=== PATIENT | female | born 1975 | race Caucasian/White ===

== ENCOUNTER → 2017-04-17 | Outpatient (REF) | payer OTHER, MEDICAID ==
[2017-04-17 12:59] LABS: BASO # 0.1 10^3/uL (0.0-0.2); BASO % 0.9 % (0.0-1.0); EOS # 0.1 10^3/uL (0.0-0.50); EOS % 1.6 % (0.0-3.0); HEMATOCRIT 38.6 % (36.0-47.0); HEMOGLOBIN 12.4 g/dl (12.0-16.0); IMMATURE GRANULOCYTE % 0.2 % (0-3.0); LYMPH # 2.6 10^3/uL (1.5-4.5); LYMPH % 45.6 % (24.0-44.0); MEAN CORPUSCULAR HEMOGLOBIN 27.1 pg (27.0-33.0); MEAN CORPUSCULAR HGB CONC 32.1 g/dl (32.0-36.5); MEAN CORPUSCULAR VOLUME 84.3 fl (80.0-96.0); MONO # 0.3 10^3/uL (0.0-0.8); MONO % 5.9 % (0.0-5.0); NEUTROPHILS # 2.6 10^3/uL (1.8-7.7); NEUTROPHILS % 45.8 % (36.0-66.0); PLATELET COUNT, AUTOMATED 291 10^3/uL (150-450); RED BLOOD COUNT 4.58 10^6/uL (4.00-5.40); RED CELL DISTRIBUTION WIDTH 13.8 % (11.5-14.5); WHITE BLOOD COUNT 5.8 10^3/uL (4.0-10.0)
[2017-04-17 13:15] LABS: TOTAL 25(OH) VITAMIN D 29.8 NG/ML (30.0-100.0)
[2017-04-17 13:19] LABS: ALBUMIN 3.5 GM/DL (3.2-5.2); ALBUMIN/GLOBULIN RATIO 0.95 (1.00-1.93); ALKALINE PHOSPHATASE 41 U/L (45-117); ALT/SGPT 14 U/L (12-78); ANION GAP 7 MEQ/L (8-16); AST/SGOT 11 U/L (7-37); BILIRUBIN,TOTAL 0.4 MG/DL (0.2-1.0); BLOOD UREA NITROGEN 14 MG/DL (7-18); CALCIUM LEVEL 8.2 MG/DL (8.5-10.1); CARBON DIOXIDE LEVEL 27 MEQ/L (21-32); CHLORIDE LEVEL 105 MEQ/L (98-107); CHOLESTEROL LEVEL 194 MG/DL (<200); CHOLESTEROL RISK RATIO 1.732 (<5); CREATININE FOR GFR 0.81 MG/DL (0.55-1.30); GLOMERULAR FILTRATION RATE > 60.0 (>58); GLUCOSE, FASTING 78 MG/DL (70-100); HDL CHOLESTEROL 112 MG/DL (>40); LDL CHOLESTEROL 71.2 MG/DL (<100); NON-HDL-C 82 MG/DL; POTASSIUM SERUM 4.3 MEQ/L (3.5-5.1); SODIUM LEVEL 139 MEQ/L (136-145); TOTAL PROTEIN 7.2 GM/DL (6.4-8.2); TRIGLYCERIDES LEVEL 54 MG/DL (<150)
[2017-04-17 13:55] LABS: HEPATITIS C VIRUS ABY INDEX 0.1 INDEX (<0.8); HIV 1&2 SCREEN CENTAUR NEGATIVE (NEGATIVE)
[2017-04-17 14:42] LABS: CHLAMYDIA DNA AMPLIFICATION NEGATIVE (NEGATIVE); GC DNA AMPLIFICATION NEGATIVE (NEGATIVE)
[2017-04-17 15:11] LABS: ESTIMATED AVERAGE GLUCOSE 103 MG/DL (60-110); HEMOGLOBIN A1c 5.2 %
== END ==
LOC: M LAB REF 12:18
DX: Z13.9 Encounter for screening, unspecified (principal)

== ENCOUNTER → 2017-08-13 | Outpatient (REF) | payer OTHER, MEDICAID ==
[2017-08-13 19:24] LABS: VITAMIN B12 LEVEL 936 PG/ML (247-911)
[2017-08-13 19:25] LABS: FOLATE 14.7 NG/ML (>5.4)
[2017-08-18 14:30] LABS: VITAMIN B1 LEVEL WHOLE BLOOD 111.5 nmol/L (66.5-200.0)
== END ==
LOC: M LAB REF 18:33
DX: R41.3 Other amnesia (principal)
CPT/HCPCS: 82746

== ENCOUNTER → 2018-05-13 | Outpatient (REF) | payer OTHER ==
[2018-05-15 16:40] LABS: HPV HYBRID CAPTURE II Negative (Negative)
== END ==
LOC: M SFHCWAGY 10:22
PROVIDERS: ATTEND Nurse Practitioner Women's Health
DX: Z12.4 Encounter for screening for malignant neoplasm of cervix (principal)

== ENCOUNTER → 2018-05-20 | Outpatient (CLI) | payer OTHER ==
--- NOTE | 2018-05-20 09:53 | REPMRS ---
Patient History The patient states she had a clinical breast exam in 04/2018. Patient had first child at age 33. No known family history of cancer. Taking hormonal contraceptives for 1 month. 3D TOMOSYNTHESIS WAS PERFORMED. Digital Woman Screen Mammo: May 20, 2018 - Exam #: [id number] Bilateral CC and MLO view(s) were taken. Technologist: Cleo Lozano, Technologist Prior study comparison: December 25, 2015, digital woman screen mammo performed at [facility]. FINDINGS: The breast tissue is heterogeneously dense. This may lower the sensitivity of mammography. There has been no change in the appearance of the mammogram from the prior studies. There is a moderate amount of residual fibroglandular tissue which is fairly symmetric. There is no interval development of dominant mass, areas of architectural distortion, or clustered microcalcification typical of malignancy. Assessment: BI-RADS/ACR category 1 mammogram. Negative Mammogram. Recommendation Routine screening mammogram in 1 year (for women over age 40). This mammogram was interpreted with the aid of an FDA-approved computer-aided dectection system. Electronically Signed By: Samuel Ugalde MD 05/20/18 0953
== END ==
LOC: M WHC 08:25
PROVIDERS: ATTEND Nurse Practitioner Women's Health
DX: Z12.31 Encounter for screening mammogram for malignant neoplasm of breast (principal)

== ENCOUNTER 2018-10-16 20:09 | Emergency (ER) | payer OTHER ==
[~2018-10-16] VITALS: Ht 160 cm; Wt 61.4 kg
[2018-10-16] MEDS ORDERED: TETANUS/DIPHTHERIA TOX ADSORB ADULT 0.5ML SYR/VIAL (90714) IM ONE (21:00)
--- NOTE | 2018-10-16 21:36 | REPVR ---
EXAM: CT Head Without Contrast EXAM DATE/TIME: 10/16/2018 9:02 PM CLINICAL HISTORY: 42 years old, female; Injury or trauma; Fall; Initial encounter; Concussion / head injury; Consciousness not specified; Additional info: Tr TECHNIQUE: Imaging protocol: Computed tomography of the head without contrast. Radiation optimization: All CT scans at this facility use at least one of these dose optimization techniques: automated exposure control; mA and/or kV adjustment per patient size (includes targeted exams where dose is matched to clinical indication); or iterative reconstruction. COMPARISON: CT Head without contrast 03/11/2015 1:26 AM FINDINGS: Brain: No acute intracranial hemorrhage or mass effect. No discrete geographic area of hypoattenuation to suggest territorial infarct identified at this time. Ventricles: No ventriculomegaly. Bones/joints: No acute fracture. Sinuses: No fluid levels. Mastoid air cells: Visualized mastoid air cells are well aerated. Soft tissues: Left frontotemporal scalp soft tissue avulsion with a few foci of subcutaneous emphysema. IMPRESSION: No acute intracranial abnormality. Left frontotemporal scalp soft tissue avulsion with a few foci of subcutaneous emphysema. Electronically signed by: Tin Davidson On 10/16/2018 21:35:54 PM
[2018-10-16] MEDS ORDERED: NORCO, ANEXSIA 5/325MG TABLET (HYDROcodone/ACETAMINOPHEN) PO ONE (21:45)
[2018-10-16] MEDS ORDERED: LIDOCAINE W/EPINEPHRINE 1% 20ML VIAL SC ONE (22:00)
[2018-10-16 23:01] VITALS: BP 150/88
== END 2018-10-16 23:29 | disposition home or self-care (01) ==
LOC: M ED 20:09
DX: S01.81XA Laceration without foreign body of other part of head, initial encounter (principal); V18.0XXA Pedal cycle driver injured in noncollision transport accident in nontraffic accident, initial encounter; Y92.89 Other specified places as the place of occurrence of the external cause

== ENCOUNTER 2018-11-22 08:19 | Observation (INO) | payer OTHER ==
[~2018-11-22] VITALS: Ht 160 cm; Wt 59.5 kg
[2018-11-22] MEDS ORDERED: BUPR150T5 PO (08:26)
[2018-11-22 09:39] LABS: BASO # 0.1 10^3/uL (0.0-0.2); BASO % 0.7 % (0.0-1.0); EOS # 0.1 10^3/uL (0.0-0.5); EOS % 1.1 % (0.0-3.0); HEMATOCRIT 32.1 % (36.0-47.0); HEMOGLOBIN 9.9 g/dl (12.0-15.5); LYMPH # 1.8 10^3/uL (1.5-5.0); LYMPH % 24.1 % (24.0-44.0); MEAN CORPUSCULAR HEMOGLOBIN 23.9 pg (27.0-33.0); MEAN CORPUSCULAR HGB CONC 30.8 g/dl (32.0-36.5); MEAN CORPUSCULAR VOLUME 77.3 fl (80.0-96.0); MONO # 0.4 10^3/uL (0.0-0.8); MONO % 5.9 % (0.0-5.0); NEUTROPHILS # 4.9 10^3/uL (1.5-8.5); NEUTROPHILS % 67.9 % (36.0-66.0); PLATELET COUNT, AUTOMATED 323 10^3/uL (150-450); RED BLOOD COUNT 4.15 10^6/uL (4.00-5.40); WHITE BLOOD COUNT 7.3 10^3/uL (4.0-10.0)
--- NOTE | 2018-11-22 09:56 | REP ---
CHEST: Single view. There is no evidence of acute infiltrate. No pleural effusion is seen. The heart is normal in size. The mediastinal silhouette is unremarkable. The visualized osseous structures are intact. IMPRESSION: No acute pulmonary disease. Electronically Signed by Samuel Ugalde MD 11/22/2018 11:26 P
[2018-11-22 10:06] LABS: HCG, SERUM QUALITATIVE NEGATIVE (NEGATIVE)
[2018-11-22 10:13] LABS: ERYTHROCYTE SEDIMENTATION RATE 10 mm/hr (0-20)
[2018-11-22 10:20] LABS: ALBUMIN 3.5 GM/DL (3.2-5.2); ALT/SGPT 60 U/L (12-78); BILIRUBIN,DIRECT 0.2 MG/DL (0.0-0.2); BILIRUBIN,TOTAL 0.5 MG/DL (0.2-1.0); BLOOD UREA NITROGEN 19 MG/DL (7-18); CALCIUM LEVEL 8.7 MG/DL (8.5-10.1); CARBON DIOXIDE LEVEL 24 MEQ/L (21-32); CHLORIDE LEVEL 107 MEQ/L (98-107); CK-MB VALUE MASS 2.7 NG/ML (<3.6); CPK CREATINE PHOSPHOKINASE 6266 U/L (26-192); CREATININE FOR GFR 0.93 MG/DL (0.55-1.30); GLOMERULAR FILTRATION RATE > 60.0 (>58); GLUCOSE, FASTING 81 MG/DL (70-100); LIPASE 233 U/L (73-393); MB/CK RELATIVE INDEX 0.04 (< OR =4); NT-PRO BNP 57 PG/ML (<125); POTASSIUM SERUM 4.2 MEQ/L (3.5-5.1); SODIUM LEVEL 138 MEQ/L (136-145); TOTAL PROTEIN 7.1 GM/DL (6.4-8.2); TROPONIN I < 0.02 NG/ML (< 0.10)
[2018-11-22] MEDS ORDERED: KETOROLAC 30 MG/ML VIAL (J1885) IV ONE (11:00)
[2018-11-22] MEDS: NS 1,000 ML IV SCH ×5 (11:02→22:57)
--- NOTE | 2018-11-22 11:55 | HPEPDOC ---
General Date of Admission 11/22/18 Date of Service: Nov 22, 2018 Other Providers SHYANNE STODDARD Chief Complaint The patient is a 43-year-old female admitted with a reason for visit of Chest Pain. Source: Patient Exam Limitations: No limitations Timing/Duration: Day(s) (1. Today) Severity: Moderate Associated Symptoms: Chest Pain History of Present Illness 43 years old white female with past medical history of depression. She is on bupropion since last 3 months complained of left-sided chest pain which is present under the left breast, nonradiating on and off exacerbated with exercise relieved with the analgesics since last 1 day. Patient has no other associated symptoms with chest pain. Patient has been working out strenuously and also has been taking hovp-fmf-ycnsiqa OXY LEAN weight loss supplement which contains caffeine, bauhinia,Bacopa, theophylline, niacin isopropyl norSynephrine, magnesium, selenium and other ingredients. Home Medications Scheduled Bupropion Hcl (Bupropion HCl Sr) 150 Mg Tab.sr.12h, 150 MG PO BID, (Reported) Allergies Coded Allergies: No Known Allergies (Unverified , 10/16/18) Past Medical History Medical History Depression Surgical History None Family History Significant Family History: No pertinent family hx Social History * Smoker: former Smoker, quit greater than 1 year Alcohol: Denies Drugs: denies A-FIB/CHADSVASC A-FIB History Current/History of A-Fib/PAF?: No Review of Systems Constitutional: Denies: Chills, Fever, Malaise, Night Sweats, Weakness, Fatigue, Weight Loss, Lethargy, Other Eyes: Denies: Pain, Vision change, Conjunctivae inflammation, Eyelid inflammation, Redness, Other ENT: Denies: Head Aches, Ear Pain, Dysphagia, Sinus Congestion, Post Nasal Drip, Sore Throat, Epistaxis, Other Symptoms Skin: Denies: Rash, Lesions, Jaundice, Bruising, Itching, Dry, Breakdown, Nail Changes, Other Pulmonary: Denies: Dyspnea, Cough, Pleuritic Chest Pain, Other Symptoms Cardiovascular: Reports: Chest Pain Gastrointestinal: Denies: Nausea, Vomiting, Abdominal Pain, Diarrhea, Constipation, Melena, Hematochezia, Other Symptoms Genitourinary: Denies: Dysuria, Frequency, Incontinence, Hematuria, Retention, Other Symptoms Endocrine: Denies: Polydipsia, Polyphagia, Polyuria, Heat Intolerance, Cold Intolerance, Other Endocrine Sx Musculoskeletal: Denies: Neck Pain, Back Pain, Shoulder Pain, Arm Pain, Hand Pain, Leg Pain, Foot Pain, Joint Pain, Muscle Pain, Spasms, Other Symptoms Neurological: Denies: Weakness, Numbness, Incoordination, Change in speech, Confusion, Seizures, Other Symptoms Psych: Denies: Mood Normal, Anxiety, Depression, Memory Issues, Thoughts of Self Harm, Anger, Thoughts of Harming Other, Other Psych Physical Examination General Exam: Positive: Alert, Cooperative Eye Exam: Positive: PERRLA, Conjunctiva & lids normal ENT Exam: Positive: Atraumatic, Mucous membr. moist/pink Neck Exam: Positive: Supple Chest Exam: Positive: Clear to auscultation, Normal air movement Heart Exam: Positive: Rate Normal, Normal S1, Normal S2, Other (. Positive tenderness at the fifth intercostal space on left side medially) Abdomen Exam: Positive: Normal bowel sounds, Soft Extremity Exam: Positive: Normal pulses Skin Exam: Positive: Nl turgor and temperature Neuro Exam: Positive: Strength at 5/5 X4 ext, Sensation Intact Psych Exam: Positive: Mental status NL, Mood NL, Oriented x 3 Vital Signs Vital Signs Date Time Temp Pulse Resp B/P (MAP) Pulse Ox O2 Delivery O2 Flow Rate FiO2 11/22/18 10:00 64 151/100 (117) 11/22/18 09:45 18 98 Room Air 11/22/18 08:20 98.5 Laboratory Data Labs 24H Laboratory Tests 2 11/22/18 09:13: D-Dimer, Quantitative 302.33 11/22/18 09:25: Immature Granulocyte % (Auto) 0.3, White Blood Count 7.3, Red Blood Count 4.15, Hemoglobin 9.9L, Hematocrit 32.1L, Mean Corpuscular Volume 77.3L, Mean Corpuscular Hemoglobin 23.9L, Mean Corpuscular Hemoglobin Concent 30.8L, Red Cell Distribution Width 17.0H, Platelet Count 323, Neutrophils (%) (Auto) 67.9H, Lymphocytes (%) (Auto) 24.1, Monocytes (%) (Auto) 5.9H, Eosinophils (%) (Auto) 1.1, Basophils (%) (Auto) 0.7, Neutrophils # (Auto) 4.9, Lymphocytes # (Auto) 1.8, Monocytes # (Auto) 0.4, Eosinophils # (Auto) 0.1, Basophils # (Auto) 0.1, Nucleated Red Blood Cells % (auto) 0.0, Erythrocyte Sedimentation Rate 10, Anion Gap 7L, Glomerular Filtration Rate > 60.0, Calcium Level 8.7, Aspartate Amino Transf (AST/SGOT) 90H, Alanine Aminotransferase (ALT/SGPT) 60, Alkaline Phosphatase 54, Total Bilirubin 0.5, Direct Bilirubin 0.2, Total Creatine Kinase 6266H, Creatine Kinase MB 2.7, Creatine Kinase MB Relative Index 0.04, Troponin I < 0.02, HB-Bmk-M-Type Natriuretic Peptide 57, Total Protein 7.1, Albumin 3.5, Albumin/Globulin Ratio 0.97L, Lipase 233, Thyroid Stimulating Hormone (TSH) 2.770, Human Chorionic Gonadotropin, Qual NEGATIVE CBC/BMP Laboratory Tests 11/22/18 09:25 Red Blood Count 4.15, Mean Corpuscular Volume 77.3 L, Mean Corpuscular Hemoglobin 23.9 L, Mean Corpuscular Hemoglobin Concent 30.8 L, Red Cell Distribution Width 17.0 H, Neutrophils (%) (Auto) 67.9 H, Lymphocytes (%) (Auto) 24.1, Monocytes (%) (Auto) 5.9 H, Eosinophils (%) (Auto) 1.1, Basophils (%) (Auto) 0.7, Neutrophils # (Auto) 4.9, Lymphocytes # (Auto) 1.8, Monocytes # (Auto) 0.4, Eosinophils # (Auto) 0.1, Basophils # (Auto) 0.1 Problems (1) Rhabdomyolysis Status: Acute Problem Text: Rhabdomyolysis, most likely secondary to exercise and over the counter weight loss medication medication. Doubt that it is caused by bupiripion. Admit patient under observation IV fluids normal saline 150 mL per hour Left rib x-ray to rule out rib fracture Patient has been is advised not to take rqux-jva-ilnshwa weight loss medications Encouraged to have enough hydration of the exercise Patient possibly can be discharged back on her bupropion once a CPK level is WNL CBC, CMP and CK in a.m. Pt is physically very active and DVT prophylaxis is not indicated Regular diet Plan / VTE VTE Prophylaxis Ordered?: No VTE Exclusion Mechanical Proph: Low Risk for VTE VTE Exclusion Pharmacological: At Low Risk for VTE ALINE DAS MD Nov 22, 2018 11:55
--- NOTE | 2018-11-22 12:31 | REP ---
Left ribs for views: There is no rib fracture or other rib abnormality. Electronically Signed by Samuel Beard MD 11/22/2018 12:23 P
[2018-11-22 12:45] VITALS: BP 143/68
[2018-11-22 14:00] VITALS: BP 137/91
[2018-11-22] MEDS: ACETAMINOPHEN TAB 650MG DOSE (2X325MG) PO PRN (15:51)
[2018-11-22 22:00] VITALS: BP 142/89
--- NOTE | 2018-11-23 00:37 | ECGEPIP ---
[facility] - ED Test Date: 2018-11-22 Pat Name: SAMIR BHAKTA Department: Room: - Gender: Female [employer]: PMO : 1975 Requested By: Mary Rizzo Order Number: [id number] Reading MD: Jay Olson Measurements Intervals [place] Rate: 73 P: 67 W[place]: 146 QRS: 91 QRSD: 95 T: 30 QT: 407 QTc: 450 Interpretive Statements SINUS RHYTHM BORDERLINE RIGHT AXIS DEVIATION Comparison tracing not on file Electronically Signed on 11-23-2018 0:37:38 EDT by Jay Olson
[2018-11-23] MEDS: NS 1,000 ML IV SCH ×3 (05:17→18:07)
[2018-11-23 06:00] VITALS: BP 138/85
[2018-11-23 06:07] LABS: HEMATOCRIT 30.5 % (36.0-47.0); MEAN CORPUSCULAR HEMOGLOBIN 23.6 pg (27.0-33.0); MEAN CORPUSCULAR HGB CONC 29.5 g/dl (32.0-36.5); MEAN CORPUSCULAR VOLUME 79.8 fl (80.0-96.0); PLATELET COUNT, AUTOMATED 301 10^3/uL (150-450); RED BLOOD COUNT 3.82 10^6/uL (4.00-5.40); WHITE BLOOD COUNT 6.4 10^3/uL (4.0-10.0)
[2018-11-23 06:47] LABS: ALBUMIN 2.7 GM/DL (3.2-5.2); ALT/SGPT 42 U/L (12-78); BILIRUBIN,TOTAL 0.2 MG/DL (0.2-1.0); BLOOD UREA NITROGEN 11 MG/DL (7-18); CALCIUM LEVEL 7.6 MG/DL (8.5-10.1); CARBON DIOXIDE LEVEL 25 MEQ/L (21-32); CHLORIDE LEVEL 112 MEQ/L (98-107); CPK CREATINE PHOSPHOKINASE 2612 U/L (26-192); GLOMERULAR FILTRATION RATE > 60.0 (>58); GLUCOSE, FASTING 91 MG/DL (70-100); POTASSIUM SERUM 4.2 MEQ/L (3.5-5.1); SODIUM LEVEL 142 MEQ/L (136-145); TOTAL PROTEIN 5.5 GM/DL (6.4-8.2)
[2018-11-23] MEDS: ACETAMINOPHEN TAB 650MG DOSE (2X325MG) PO PRN ×2 (08:29→20:23)
[2018-11-23 14:00] VITALS: BP 143/90
--- NOTE | 2018-11-23 19:43 | IPNPDOC ---
Date Seen The patient was seen on 11/23/18. Progress Note SUBJECTIVE: 43-year-old female with past medical history of depression, was admitted for rhabdomyolysis. She reports excessive exercising and taking a thermogenic uygo-xnh-qbfodys supplement. She reports improvement in chest pain but continues to have pleuritic and reproducible point tenderness. She reports feeling significantly better and wishes to go home. She has no other complaints at this time, tolerating diet, ambulating; she denies having shortness of breath, abdominal pain, nausea, vomiting, diarrhea, constipation. 10 point review of system was negative except for above OBJECTIVE PHYSICAL EXAMINATION: VITAL SIGNS: Please see below. GENERAL: No distress HEENT: Normocephalic, atraumatic, moist mucous membranes CARDIOVASCULAR: S1, S2. RESPIRATORY: Clear to auscultation. ABDOMINAL: Soft, nontender, nondistended, positive bowel sounds EXTREMITIES: Range of motion intact NEUROLOGICAL: Alert and oriented 3, no focal deficits PSYCHOLOGICAL: Calm LABORATORY DATA, IMAGING STUDIES, MICROBIOLOGY: Please see below. DVT prophylaxis ordered?: No ASSESSMENT AND PLAN: 43-year-old female admitted for rhabdomyolysis due to excessive exercising and taking auco-rmv-sijgkhn thermogenic supplementation. PROBLEMS: 1. Rhabdomyolysis: . Improving. Continue normal saline at 150 mL per hour 2. Anemia: . Reports having menstruation. Likely iron deficiency, anemia workup ordered. DVT prophylaxis: SCDs and ambulation. GI prophylaxis: Not needed at this time VS, I&O, 24H, Fishbone Vital Signs/I&O Vital Signs Date Time Temp Pulse Resp B/P (MAP) Pulse Ox O2 Delivery O2 Flow Rate FiO2 11/23/18 14:00 98.0 66 18 143/90 (107) 99 11/22/18 12:20 Room Air I&O- Last 24 Hours up to 6 AM 11/23/18 05:59 Intake Total 3340 ml Balance 3340 ml Laboratory Data 24H LABS Laboratory Tests 2 11/23/18 05:27: Nucleated Red Blood Cells % (auto) 0.0, Anion Gap 5L, Glomerular Filtration Rate > 60.0, Blood Urea Nitrogen 11, Creatinine 0.80, Sodium Level 142, Potassium Level 4.2, Chloride Level 112H, Carbon Dioxide Level 25, Calcium Level 7.6L, Aspartate Amino Transf (AST/SGOT) 47H, Alanine Aminotransferase (ALT/SGPT) 42, T otal Creatine Kinase 2612H, Alkaline Phosphatase 46, Total Bilirubin 0.2#, Total Protein 5.5#L, Albumin 2.7#L, Albumin/Globulin Ratio 0.96L CBC/BMP Laboratory Tests 11/23/18 05:27 Red Blood Count 3.82 L, Mean Corpuscular Volume 79.8 L, Mean Corpuscular Hemoglobin 23.6 L, Mean Corpuscular Hemoglobin Concent 29.5 L, Red Cell Distribution Width 17.2 H, Calcium Level 7.6 L, Aspartate Amino Transf (AST/SGOT) 47 H, Alanine Aminotransferase (ALT/SGPT) 42, Total Creatine Kinase 2612 H, Alkaline Phosphatase 46, Total Bilirubin 0.2 #, Total Protein 5.5 #L, Albumin 2.7 #L ROSE MARY SUAREZ MD Nov 23, 2018 19:43
[2018-11-23 22:00] VITALS: BP 134/94
[2018-11-24] MEDS: NS 1,000 ML IV SCH ×2 (00:23→05:05)
[2018-11-24 06:00] VITALS: BP 131/84
[2018-11-24 06:02] LABS: HEMATOCRIT 30.4 % (36.0-47.0); MEAN CORPUSCULAR HEMOGLOBIN 23.6 pg (27.0-33.0); MEAN CORPUSCULAR HGB CONC 29.6 g/dl (32.0-36.5); MEAN CORPUSCULAR VOLUME 79.6 fl (80.0-96.0); PLATELET COUNT, AUTOMATED 308 10^3/uL (150-450); RED BLOOD COUNT 3.82 10^6/uL (4.00-5.40); WHITE BLOOD COUNT 8.5 10^3/uL (4.0-10.0)
[2018-11-24 08:55] LABS: ALBUMIN 2.5 GM/DL (3.2-5.2); ALT/SGPT 40 U/L (12-78); BILIRUBIN,TOTAL 0.2 MG/DL (0.2-1.0); BLOOD UREA NITROGEN 10 MG/DL (7-18); CALCIUM LEVEL 7.5 MG/DL (8.5-10.1); CARBON DIOXIDE LEVEL 25 MEQ/L (21-32); CHLORIDE LEVEL 112 MEQ/L (98-107); CPK CREATINE PHOSPHOKINASE 1310 U/L (26-192); CREATININE FOR GFR 0.78 MG/DL (0.55-1.30); FERRITIN 3 NG/ML (8-252); FOLATE 7.8 NG/ML (>5.4); GLOMERULAR FILTRATION RATE > 60.0 (>58); GLUCOSE, FASTING 80 MG/DL (70-100); IRON (FE) 9 UG/DL (50-170); MAGNESIUM LEVEL 1.5 MG/DL (1.8-2.4); POTASSIUM SERUM 4.5 MEQ/L (3.5-5.1); SODIUM LEVEL 143 MEQ/L (136-145); TOTAL IRON BINDING CAPACITY 298 UG/DL (250-450); TOTAL PROTEIN 4.9 GM/DL (6.4-8.2); VITAMIN B12 LEVEL 448 PG/ML (247-911)
[2018-11-24] MEDS ORDERED: INFLUENZA QUADRIVALENT PF VACCINE 0.5ML SYRINGE (90686) IM ONE (09:00)
[2018-11-24] MEDS ORDERED: IRON SUCROSE 100MG 5ML VIAL (J1756 PER 1MG) IV ONE (09:15)
[2018-11-24] MEDS ORDERED: NS 1,000 ML IV ONE (09:30)
[2018-11-24] MEDS: MAG SULF 1GM/100ML (MAG RUN) 1 GM in IV 1 EA IV SCH ×2 (09:32→10:49)
[2018-11-24] MEDS ORDERED: MAG SULF 1GM/100ML (MAG RUN) 1 GM in IV 1 EA IV ONE (10:15)
[2018-11-24] MEDS ORDERED: FERR325T3 PO (11:03)
[2018-11-24] MEDS ORDERED: COLA100C5 PO (11:03)
--- NOTE | 2018-11-24 11:09 | DS.PDOC ---
Discharge Summary General Date of Admission Nov 22, 2018 at 08:20 Date of Discharge 11/24/2018 Attending Physician: ROSE MARY SUAREZ MD Discharge Summary PROCEDURES PERFORMED DURING STAY: None. ADMITTING DIAGNOSES: 1. Rhabdomyolysis. DISCHARGE DIAGNOSES: 1. Rhabdomyolysis, iron deficiency anemia. COMPLICATIONS/CHIEF COMPLAINT: Rhabdomyolysis. HISTORY OF PRESENT ILLNESS: 43-year-old female with past medical history of depression, was admitted for rhabdomyolysis due to excessive exercise and taking thermogenic ubos-kij-vffcejc supplements. She has improved significantly with IV fluids, CPK significantly dropped, pleuritic chest pain minimal. Patient was anemic upon presentation, anemia, workup consistent with significant iron deficiency, will give 1 dose of IV iron prior to discharge, will discharge on by mouth supplementation and Colace. Patient is doing well today, has no complaints at this time. HOSPITAL COURSE: As above. DISCHARGE MEDICATIONS: Please see below. ALLERGIES: Please see below. PHYSICAL EXAMINATION ON DISCHARGE: VITAL SIGNS: Please see below. GENERAL: no distress HEENT: Normocephalic, atraumatic, moist pedis membranes NECK: Supple CARDIOVASCULAR EXAMINATION:. S1, S2, no murmurs appreciated RESPIRATORY EXAMINATION: Clear to auscultation, no wheezing or rhonchi ABDOMINAL EXAMINATION:. Soft, nontender, nondistended, positive bowel sounds EXTREMITIES:, Range of motion intact SKIN:. No rash NEUROLOGICAL EXAMINATION: Alert and oriented 3, no focal deficits PSYCHIATRIC EXAMINATION: Calm LABORATORY DATA: Please see below. PROGNOSIS: Good ACTIVITY: As tolerated. DIET: Regular DISCHARGE PLAN: She will follow up with her primary care physician within 2 weeks. DISPOSITION: . DISCHARGE INSTRUCTIONS: 1. Please follow with PCP and take iron supplementation. DISCHARGE CONDITION: Stable. TIME SPENT ON DISCHARGE: Greater than 27 minutes. Vital Signs/I&Os Vital Signs Date Time Temp Pulse Resp B/P (MAP) Pulse Ox O2 Delivery O2 Flow Rate FiO2 11/24/18 06:00 99.2 65 20 131/84 (100) 90 11/22/18 12:20 Room Air I&O- Last 24 Hours up to 6 AM 11/24/18 06:00 Intake Total 3246 ml Output Total 0 ml Balance 3246 ml Laboratory Data Labs 24H Laboratory Tests 2 11/24/18 05:31: Nucleated Red Blood Cells % (auto) 0.0, Anion Gap 6L, Glomerular Filtration Rate > 60.0, Blood Urea Nitrogen 10, Creatinine 0.78, Sodium Level 143, Potassium Level 4.5, Chloride Level 112H, Carbon Dioxide Level 25, Calcium Level 7.5L, Aspartate Amino Transf (AST/SGOT) 26, Alanine Aminotransferase (ALT/SGPT) 40, Total Creatine Kinase 1310H, Alkaline Phosphatase 45, Total Bilirubin 0.2, Total Protein 4.9L, Albumin 2.5L, Magnesium Level 1.5L, Iron Level 9L, Total Iron Binding Capacity 298, Transferrin % Saturation 3.0L, Ferritin 3L, Albumin/Globulin Ratio 1.04, Vitamin B12 Level 448, Folate 7.8 CBC/BMP Laboratory Tests 11/24/18 05:31 Red Blood Count 3.82 L, Mean Corpuscular Volume 79.6 L, Mean Corpuscular Hemoglobin 23.6 L, Mean Corpuscular Hemoglobin Concent 29.6 L, Red Cell Dis tribution Width 17.1 H, Calcium Level 7.5 L, Aspartate Amino Transf (AST/SGOT) 26, Alanine Aminotransferase (ALT/SGPT) 40, Total Creatine Kinase 1310 H, Alkaline Phosphatase 45, Total Bilirubin 0.2, Total Protein 4.9 L, Albumin 2.5 L Discharge Medications Scheduled Bupropion Hcl (Bupropion HCl Sr) 150 Mg Tab.sr.12h, 150 MG PO BID, (Reported) Docusate Sodium (Colace) 100 Mg Capsule, 100 MG PO BID Ferrous Sulfate (Ferrous Sulfate) 325 Mg Tablet.dr, 1 TAB PO BID Allergies Coded Allergies: No Known Allergies (Unverified , 10/16/18) ROSE MARY SUAREZ MD Nov 24, 2018 11:09
[2018-11-24] MEDS ORDERED: IRON SUCROSE 100 MG in NS 100 ML OVER 1 HR IV ONE (12:00)
[2018-11-24] MEDS: ACETAMINOPHEN TAB 650MG DOSE (2X325MG) PO PRN (12:38)
[2018-11-24 12:39] VITALS: BP 130/75
[2018-11-24 14:00] VITALS: BP 150/102
[2018-11-24] MEDS ORDERED: ONDANSETRON 4MG/2ML VIAL (J2405) IV ONE (14:00)
== END 2018-11-24 16:24 | disposition home or self-care (01) ==
LOC: M ED 08:19 → M ED INP 08:20 → M MSPAV 12:45
PROVIDERS: ADMIT Internal Medicine; ATTEND Internal Medicine
DX: M62.82 Rhabdomyolysis (principal); D50.9 Iron deficiency anemia, unspecified; R07.1 Chest pain on breathing; F32.9 Major depressive disorder, single episode, unspecified; Z79.899 Other long term (current) drug therapy; Z87.891 Personal history of nicotine dependence
CPT/HCPCS: 36415; 71045; 71100; 80048; 80053; 80076; 82550; 82553; 82607; 82728; 82746; 83550; 83690; 83735; 83874; 83880; 84443; 84703; 85025; 85027; 85379; 85652; 90471; 90686; 93005; 93041; 94760; 96361; 96374; 96375; 99285; J1756; J1885; J2405; J3475

== ENCOUNTER → 2019-08-18 | Outpatient (CLI) | payer OTHER ==
[~2019-08-18] MED LIST: BUPR150T5 PO; COLA100C5 PO; FERR325T3 PO
--- NOTE | 2019-08-18 11:03 | REPMRS ---
Patient History The patient states she had a clinical breast exam in August 2019.No known family history of cancer. Taking hormonal contraceptives for 1 month. Digital Woman Screen Mammo: August 18, 2019 - Exam #: [id number] Bilateral CC and MLO view(s) were taken. Technologist: Kerry Arana, Technologist Prior study comparison: May 20, 2018, bilateral digital woman screen mammo performed at [facility]. December 25, 2015, digital woman screen mammo performed at [facility]. FINDINGS: There are scattered fibroglandular densities. The Volpara volumetric breast density category is:B. There has been no change in the appearance of the mammogram from the prior studies. There is a mild amount of scattered fibroglandular density which is fairly symmetric. There is no interval development of dominant mass, architectural distortion, or grouped microcalcification suggestive of malignancy. 3-D tomosynthesis shows no additional findings. Assessment: BI-RADS/ACR category 1 mammogram. Negative Mammogram. Recommendation Routine screening mammogram of both breasts in 1 year (for women over age 40). This patient's Lifetime Breast Cancer Risk is estimated at 13.7 %. This mammogram was interpreted with the aid of an FDA-approved computer-aided dectection system. Electronically Signed By: Jose Joyce MD 08/18/19 [id number]
== END ==
LOC: M WHC 09:59
PROVIDERS: ATTEND Nurse Practitioner Women's Health
DX: Z12.31 Encounter for screening mammogram for malignant neoplasm of breast (principal)

== ENCOUNTER → 2020-01-19 | Outpatient (REF) | payer OTHER ==
[2020-01-19 17:12] LABS: BASO # 0.1 10^3/uL (0.0-0.2); BASO % 0.7 % (0.0-1.0); EOS # 0.1 10^3/uL (0.0-0.5); EOS % 1.7 % (0.0-3.0); HEMATOCRIT 40.4 % (36.0-47.0); HEMOGLOBIN 13.2 g/dl (12.0-15.5); LYMPH # 2.9 10^3/uL (1.5-5.0); LYMPH % 34.4 % (24.0-44.0); MEAN CORPUSCULAR HEMOGLOBIN 30.9 pg (27.0-33.0); MEAN CORPUSCULAR HGB CONC 32.7 g/dl (32.0-36.5); MEAN CORPUSCULAR VOLUME 94.6 fl (80.0-96.0); MONO # 0.5 10^3/uL (0.0-0.8); NEUTROPHILS # 4.8 10^3/uL (1.5-8.5); PLATELET COUNT, AUTOMATED 296 10^3/uL (150-450); RED BLOOD COUNT 4.27 10^6/uL (4.00-5.40); WHITE BLOOD COUNT 8.4 10^3/uL (4.0-10.0)
[2020-01-19 20:20] LABS: ALBUMIN 3.5 GM/DL (3.2-5.2); ALT/SGPT 16 U/L (12-78); BILIRUBIN,TOTAL 0.3 MG/DL (0.2-1.0); BLOOD UREA NITROGEN 20 MG/DL (7-18); CALCIUM LEVEL 8.9 MG/DL (8.5-10.1); CARBON DIOXIDE LEVEL 28 MEQ/L (21-32); CHLORIDE LEVEL 104 MEQ/L (98-107); CREATININE FOR GFR 0.81 MG/DL (0.55-1.30); FERRITIN 16 NG/ML (8-252); GLOMERULAR FILTRATION RATE > 60.0 (>58); GLUCOSE, FASTING 92 MG/DL (70-100); IRON (FE) 73 UG/DL (50-170); PERCENT SATURATION 20.4 % (13.2-45.0); POTASSIUM SERUM 3.8 MEQ/L (3.5-5.1); SODIUM LEVEL 138 MEQ/L (136-145); TOTAL IRON BINDING CAPACITY 358 UG/DL (250-450); TOTAL PROTEIN 6.9 GM/DL (6.4-8.2)
[2020-01-19 20:21] LABS: VITAMIN B12 LEVEL 578 PG/ML
[2020-01-19 20:28] LABS: FOLATE 11.4 NG/ML
== END ==
LOC: M LAB REF 16:21
PROVIDERS: ATTEND Physician Assistant
DX: R53.83 Other fatigue (principal); D64.9 Anemia, unspecified

== ENCOUNTER → 2020-09-04 | Outpatient (REF) | payer OTHER | LOC: M SFHCWAGY 17:17 | PROVIDERS: ATTEND Nurse Practitioner Women's Health | DX: Z12.4 Encounter for screening for malignant neoplasm of cervix (principal) ==

== ENCOUNTER → 2020-09-04 | Outpatient (CLI) | payer OTHER ==
--- NOTE | 2020-09-04 13:53 | REPMRS ---
Patient History The patient states she had a clinical breast exam in August 2020. No known family history of cancer. Taking hormonal contraceptives for 1 month. No breast complaints or changes today Patient signed the MRS sheet No covid vaccine Priors on PACS Patient Identification Verified Patient denied Digital Woman Screen Mammo: September 04, 2020 - Exam #: [id number] Bilateral CC and MLO view(s) were taken. Technologist: Lesly Pagan, Technologist Prior study comparison: August 18, 2019, bilateral digital woman screen mammo performed at [facility]. May 20, 2018, bilateral digital woman screen mammo performed at [facility]. December 25, 2015, digital woman screen mammo performed at [facility]. FINDINGS: There are scattered fibroglandular densities. The Volpara volumetric breast density category is:B. There has been no change in the appearance of the mammogram from the prior studies. There is a mild amount of scattered fibroglandular density which is fairly symmetric. There is no interval development of dominant mass, architectural distortion, or grouped microcalcification suggestive of malignancy. 3-D tomosynthesis shows no additional findings. Assessment: BI-RADS/ACR category 1 mammogram. Negative Mammogram. Recommendation Routine screening mammogram of both breasts in 1 year (for women over age 40). This patient's [facility] Lifetime Breast Cancer Risk is estimated at 13.5 %. This mammogram was interpreted with the aid of an FDA-approved computer-aided dectection system. Electronically Signed By: Jose Joyce MD 09/04/20 [id number]
== END ==
LOC: M WHC 11:27
PROVIDERS: ATTEND Nurse Practitioner Women's Health
DX: Z12.31 Encounter for screening mammogram for malignant neoplasm of breast (principal)